=== PATIENT | female | born 1985 | race Caucasian/White ===

== ENCOUNTER 2018-03-23 07:23 | Inpatient (IN) ==
[~2018-03-23 07:23] MED LIST: Lactated Ringers-OB Dept 1,000 ML ONE
[2018-03-23] MEDS ORDERED: Carboprost Inj 250 MCG/ML AMP IM PRN (07:58)
[2018-03-23] MEDS ORDERED: LIDOCAINE W/ SODIUM BICARB 0.5 ML SYR SUBD PRN (07:58)
[2018-03-23] MEDS ORDERED: ONDANSETRON 4 MG/2 ML VIAL IVP PRN ×2 (07:58→14:34)
[2018-03-23] MEDS ORDERED: Naloxone Inj 0.01 MG in Normal Saline Flush 1 ML IVP PRN (07:58)
[2018-03-23] MEDS ORDERED: BUTORPHANOL TARTRATE 2 MG/1 ML VIAL IVP PRN (07:58)
[2018-03-23] MEDS ORDERED: ePHEDrine Inj 5 MG in Normal Saline Flush 1 ML IVP PRN (07:58)
[2018-03-23] MEDS ORDERED: NALOXONE 0.4 MG/1 ML VIAL IVP PRN (07:58)
[2018-03-23] MEDS ORDERED: Nalbuphine Inj 20 MG/ML Ampule IVP PRN ×2 (07:58→14:34)
[2018-03-23] MEDS ORDERED: LIDOCAINE HCL 2 % 10 ML JELLY URO-JECT TOPICAL PRN ×2 (07:58→14:34)
[2018-03-23] MEDS ORDERED: CALCIUM CARBONATE 500 MG (TUMS) CHEWABLE TABLET PO PRN ×2 (07:58→14:34)
[2018-03-23] MEDS ORDERED: Metoclopramide Inj 10 MG/2 ML VIAL IV PRN (07:58)
[2018-03-23] MEDS ORDERED: diphenhydrAMINE 50 MG/1 ML VIAL IVP PRN ×2 (07:58→14:34)
[2018-03-23] MEDS ORDERED: METHYLERGONOVINE MALEATE 0.2 MG/1 ML VIAL IM PRN (07:58)
[2018-03-23] MEDS ORDERED: MISOPROSTOL 200 MCG TABLET RECTAL PRN (07:58)
[2018-03-23] MEDS ORDERED: TERBUTALINE SULFATE 1 MG/1 ML SDV SUBCUT PRN (07:58)
[2018-03-23] MEDS ORDERED: Lidocaine 1% 10 MG/ML - 20 ML VIAL SUBCUT PRN (07:58)
[2018-03-23] MEDS ORDERED: CITRIC ACID/SODIUM CITRATE 30 ML CUP PO PRN (07:58)
[2018-03-23] MEDS ORDERED: Phenylephrine Inj 50 MCG in Normal Saline Flush 0.5 ML IVP PRN (07:58)
[2018-03-23] MEDS ORDERED: CefOXitin Inj 2 GM in Sodium Chloride 0.9% 100 ML IV PRN (07:58)
[2018-03-23] MEDS ORDERED: FAMOTIDINE 20 MG/2 ML VIAL IVP PRN ×2 (07:58)
[2018-03-23] MEDS ORDERED: OXYTOCIN 10 UNIT/1 ML IM PRN (07:58)
[2018-03-23] MEDS ORDERED: Oxytocin 20 Units + LR 20 UNIT/1,000 ML BAG IV SCH ×3 (08:00→14:34)
[2018-03-23] MEDS ORDERED: Lactated Ringers-OB Dept 1,000 ML PRIMARY IV SCH (08:00)
[2018-03-23 08:11] LABS: Hematocrit [HCT] 37.5 % (37.0-47.0); Hemoglobin [HGB] 12.9 g/dL (12.0-16.0); MEAN CORPUSCULAR HGB CONC 34.4 g/dL (33-37); MEAN CORPUSCULAR VOLUME 93.1 FL (81-99); MEAN PLATELET VOLUME 12.4 FL (7.4-12.2); RED BLOOD COUNT 4.03 10^6/uL (4.20-5.40)
--- NOTE | 2018-03-23 10:41 | OB.PROGRES ---
Date of Service: 03/23/18 Time of Service: 09:30 Interval History: Here for induction at term. She isn't really feeling any contractions. Denies vag bleeding or gushes of fluid. Baby has been active. She had an uncomplicated vaginal delivery 4 years ago. Is planning on no epidural. Objective - Cervical Exam Cervical Exam: /-1 [place]: difficult to tell, pt is feeling them about 4-5 minutes apart. Currently on 2 mU of pitocin. Heart Rate: 150, moderate variability, + accels. No decels noted. - Labs CBC and BMP: 03/23/18 07:55 - Vital Signs Last Taken Vital Signs: Vital Signs - Last Taken Temperature 98.2 F 03/23/18 09:30 Pulse Rate 77 03/23/18 09:30 Respiratory Rate 16 03/23/18 08:00 Blood Pressure 108/70 03/23/18 09:30 Pulse Ox 99 03/23/18 08:00 Assessment and Plan - Patient Problems (1) Term Current Visit: Yes Status: Acute Code(s): Z34.80 - Encounter for supervision of other normal , unspecified trimester - Assessment / Plan Additional Assessment/Plan Details: -GBS negative. -AROM with clear fluid--baby tolerated well. -no pain at the current time, but pt doesn't desire epidural. -anticipate normal vaginal delivery.
[2018-03-23] MEDS: fentaNYL Inj 100 MCG/2 ML VIAL IV PRN ×2 (11:29→12:12)
[2018-03-23] MEDS ORDERED: ACETAMINOPHEN 325 MG TABLET PO PRN (14:34)
[2018-03-23] MEDS ORDERED: IBUPROFEN 800 MG TABLET PO PRN (14:34)
[2018-03-23] MEDS ORDERED: LANOLIN HPA 40 GM TUBE TOPICAL PRN (14:34)
[2018-03-23] MEDS ORDERED: GLYCERIN/WITCH HAZEL 1 BOX TOPICAL PRN (14:34)
[2018-03-23] MEDS ORDERED: DIPH,PERTUSS,TET(ADACEL) VAC/PF 0.5 ML (Tdap) IM ONE (14:34)
[2018-03-23] MEDS ORDERED: Ondansetron ODT Tab 4 MG TAB PO PRN (14:34)
[2018-03-23] MEDS ORDERED: HYDROcodone-APAP 5 MG -325 MG TABLET PO PRN (14:34)
[2018-03-23] MEDS ORDERED: BENZOCAINE/MENTHOL SPRAY 56 GM BOTTLE TOPICAL PRN (14:34)
[2018-03-23] MEDS ORDERED: diphenhydrAMINE 25 MG CAPSULE PO PRN (14:34)
--- NOTE | 2018-03-23 14:35 | OB.DEL.SUM ---
Delivery Note Delivery Summary: Pt is a 32 yo G3 now P3 at 39 0/7 weeks by second trimester u/s, who presented for induction of labor this morning. She is GBS negative. She was found to be 5 cm on admission and was having some irregular contractions, so was thought to be in early labor. She was augmented with low dose pitocin and progressed nicely. She underwent amniotomy at 6 cm with return of clear fluid. She progressed on her own to complete around 1325 and began pushing a short time later. She delivered a viable male over an intact perineum at 1332. Delivery presentation was EVELIN. Baby's nose and mouth were suctioned with the bulb suction and the cord was clamped and cut 45 seconds after delivery. Baby was placed on mom's chest. Cord blood and cord gases were obtained for analysis. The placenta delivered spontaneously and intact with a 3 vessel cord at 1340. 20 mU of pitocin were infused with excellent hemostasis. The vagina and perineum were examined and a small right superior labia majora laceration was noted and hemostatic, so not repaired. No other lacerations were noted. Apgars were 9 at 1 minute and 10 at 5 minutes. Baby weighed 7#12.8 oz and was 20.5 inches long. Both mom and baby tolerated delivery well and are in stable condition at this time. - Patient Problems (1) Term Current Visit: Yes Status: Acute Code(s): Z34.80 - Encounter for supervision of other normal , unspecified trimester
[2018-03-23] MEDS: DOCUSATE 100 MG CAPSULE PO SCH (20:49)
[2018-03-24 05:18] VITALS: O2SAT 100
[2018-03-24 05:36] LABS: Hemoglobin [HGB] 13.7 g/dL (12.0-16.0); MEAN CORPUSCULAR HEMOGLOBIN 31.9 PG (27-31); MEAN CORPUSCULAR HGB CONC 34.3 g/dL (33-37); MEAN PLATELET VOLUME 12.1 FL (7.4-12.2); RED BLOOD COUNT 4.3 10^6/uL (4.20-5.40)
[2018-03-24 07:52] VITALS: BP 114/63; RESP 16; TEMP 98.6
[2018-03-24] MEDS: DOCUSATE 100 MG CAPSULE PO SCH (08:29)
[2018-03-24] MEDS ORDERED: Prenatal Multivitamin Tab 1 TAB TAB PO SCH (09:00)
--- NOTE | 2018-03-24 09:49 | OB.PROGRES ---
Subjective Post Day: 1 Pain Management: PO [place] Catheter: No Flatus: Yes Lochia Color: Rubra/Red Small 10-25 ml Diet: Regular Feeding Method: Exculsively Ambulating: Yes Objective - General General Appearance: POSITIVE: No Acute Distress, Cooperative - Cardiovacular Cardiovascular Exam: POSITIVE: RRR, No Murmur Edema: +1 Pedal Edema Extremities: Negative Mello's - Bilaterally - Respiratory Respiratory Exam: POSITIVE: Clear to Auscultation - Bilaterally, Breathing Non Labored Assesstment / Plan (1) Term Current Visit: Yes Status: Acute Assessment / Plan: -routine cares. -no anemia. -rubella immune. -rh positive. -breast feeding going ok--baby was pretty sleepy overnoc and only fed 2 times. -d/c home likely later this afternoon.
== END 2018-03-24 16:20 | disposition home or self-care (01) | DRG 775 ==
LOC: OBIP 08:03
PROVIDERS: ADMIT Family Medicine; ATTEND Family Medicine